=== PATIENT | male | born 1955 | race Caucasian/White ===

== ENCOUNTER 2024-04-06 11:46 | Outpatient (CLI) | payer MEDICARE ==
[~2024-04-06 11:46] MED LIST: Magnevist 469MG/ML 20 ML VIAL ONE
== END 2024-04-06 11:47 | disposition home or self-care (01) ==
LOC: CSHMRI 11:46
PROVIDERS: ATTEND Urology
DX: C61 Malignant neoplasm of prostate (principal)
CPT/HCPCS: 72197